=== PATIENT | male | born 1980 | race Asian ===

== ENCOUNTER 2018-03-30 19:21 | Emergency (ER) | payer BC, OTHER ==
[2018-03-30] MEDS: SOD CHLORIDE 0.9% 1,000 ML IV (20:57)
[2018-03-30] MEDS: METOCLOPRAMIDE 10 MG INJ IV (20:58)
[2018-03-30] MEDS: DIPHENHYDRAMINE 50 MG INJ IV (20:58)
[2018-03-30] MEDS: KETOROLAC 30 MG INJ IV (20:58)
[2018-03-30 21:30] LABS: ADD MAN DIFF? NO
[2018-03-30 21:32] LABS: WHITE BLOOD COUNT 8.7 10^3/ul (4.8-10.8)
[2018-03-30 21:32] LABS: BASOPHIL # 0.1 10^3/ul (0.0-0.1); BASOPHILS % 1.2 % (0.0-2.0); EOSINOPHILS # 0.5 10^3/ul (0.0-0.5); EOSINOPHILS % 5.8 % (0.0-7.0); HEMATOCRIT 54.9 % (42.0-52.0); HEMOGLOBIN 19.2 g/dl (14.0-18.0); LYMPHOCYTES # 3.6 10^3/ul (0.8-2.9); LYMPHOCYTES % 41.2 % (15.0-51.0); MEAN CORPUSCULAR HEMOGLOBIN 31.9 pg (29.0-33.0); MEAN CORPUSCULAR VOLUME 91.3 fl (82.0-101.0); MEAN PLATELET VOLUME 9.7 fl (7.4-10.4); MONOCYTE # 0.7 10^3/ul (0.3-0.9); MONOCYTES % 8.3 % (0.0-11.0); NEUTROPHIL # 3.7 10^3/ul (1.6-7.5); PLATELET COUNT 281 10^3/UL (140-415); RED BLOOD COUNT 6.01 10^6/ul (4.70-6.10); RED CELL DISTRIBUTION WIDTH 11.4 % (11.5-14.5)
[2018-03-30 21:51] LABS: ANION GAP 20 (8-16); BLOOD UREA NITROGEN 14 mg/dl (7-20); CALCIUM 9.9 mg/dl (8.4-10.2); CARBON DIOXIDE 27 mmol/L (21-31); CHLORIDE 100 mmol/L (97-110); CREATININE 0.77 mg/dl (0.61-1.24); GLUCOSE 86 mg/dl (70-220); INR 0.83; POTASSIUM 3.8 mmol/L (3.5-5.1); PROTIME 11.5 Sec (11.9-14.9); PT RATIO 0.9; SODIUM 143 mmol/L (135-144)
[2018-03-30 21:52] LABS: PARTIAL THROMBOPLASTIN TIME 33.2 Sec (25.0-35.0)
[2018-03-30 22:04] LABS: TROPONIN-I < 0.012 ng/ml (0.000-0.120)
== END 2018-03-30 23:01 | disposition home or self-care (01) ==
LOC: FTE 19:21
DX: R42 Dizziness and giddiness (principal); I10 Essential (primary) hypertension; R07.9 Chest pain, unspecified
CPT/HCPCS: 36415; 80048; 84484; 85025; 85610; 85730; 93005; 96374; 96375; 99284-25